=== PATIENT | female | born 1965 | race Caucasian/White ===

== ENCOUNTER 2021-12-31 15:57 | Emergency (ER) | payer MEDICAID, OTHER ==
[~2021-12-31] VITALS: Ht 154.9 cm; Wt 64.0 kg
[~2021-12-31 15:57] MED LIST: INSULIN
[2021-12-31] MEDS ORDERED: CLIN-116 MT (18:34)
[2021-12-31 21:00] VITALS: BP 115/65
== END 2021-12-31 21:01 | disposition home or self-care (01) ==
LOC: ER 16:31
DX: L03.115 Cellulitis of right lower limb (principal); E11.9 Type 2 diabetes mellitus without complications; Z88.0 Allergy status to penicillin; Z98.890 Other specified postprocedural states
CPT/HCPCS: 82962; 99283